=== PATIENT | male | born 1945 | race Caucasian/White ===

== ENCOUNTER 2020-02-27 14:24 | Emergency (ER) | payer OTHER, SELFPAY ==
[2020-02-27] VITALS (13 sets, daily range): BP systolic 111–140; BP diastolic 61–77; PULSE 63–99; RESP 12–99; TEMP 36.6; O2SAT 97–100
--- NOTE | 2020-02-27 14:26 | DI.CT.S_ITS ---
PROCEDURE: CT HEAD/BRAIN WO CON INDICATIONS: weakness TECHNIQUE: Noncontrast 4.5 mm thick angled axial sections acquired from the foramen magnum to the vertex, with coronal and sagittal reformats. For radiation dose reduction, the following was used: automated exposure control, adjustment of mA and/or kV according to patient size. COMPARISON: [facility], , MRI HEAD W/WO CONTRAST, 01/29/2004, 9:40. FINDINGS: Image quality: Excellent. CSF spaces: Basal cisterns are patent. No extra-axial fluid collections. Ventricles are normal in size and shape. Brain: No midline shift. No intracranial masses or hemorrhage. Garcia-white matter interface is normal. Possible partially calcified meningioma seen at the right vertex image 20/ measuring 1.5 cm. this is probably unchanged as MRI dated 01/29/04. Skull and face: Calvarium and visualized facial bones are intact, without suspicious lesions. Sinuses: Visualized sinuses and mastoids are clear. IMPRESSION: No acute intracranial process. Chronic right frontal calcified meningioma Findings were personally telephoned and discussed with Dr. Leach in the emergency department at 1441 hours 02/27/20. Dictated by: Charly Edmondson M.D. on 02/27/2020 at 14:37 Approved by: Charly Edmondson M.D. on 02/27/2020 at 14:42
--- NOTE | 2020-02-27 14:44 | ED_ITS ---
HPI - Neuro Symptoms/Deficit General Chief Complaint: Neuro Symptoms/Deficit Stated Complaint: stroke Time Seen by Provider: 02/27/20 14:31 Source: patient and family Mode of arrival: Wheelchair History of Present Illness HPI Narrative: CC: dizziness with chest discomfort HPI: The patient is a 75-year-old who presented to the emergency department with the sudden onset of dizziness that the nurses ordered it is code stroke on the patient. The patient states that he has a history of atrial fib and is status post ablations years ago. Today right after eating lunch the patient developed a vague chest discomfort arm that was a little bit tightness squeezing and pressure associated with dizziness and lightheadedness. He states that his balance was off but he was not having any spinning discomfort. His chest discomfort was just very uncomfortable and tight and squeezing. His arms felt very weak and tired with no energy. He felt a little bit diaphoretic with the onset of the symptoms and had mild shortness of breath. He did not pass out or fall. He denied any significant back pain or arm headache associated with this. He could not give any pain score but then stated -04/19 He denies a history of diabetes mellitus hypertension previous stroke or myocardial infarction. Patient states that he used to smoke years ago arm drinks alcohol rarely and does not use any drugs or marijuana. On Anticoagulants: No Related Data Home Medications Medication Instructions Recorded Confirmed metoprolol tartrate 37.5 mg PO #0 02/09/13 warfarin [Coumadin] #0 02/09/13 Allergies Allergy/AdvReac Type Severity Reaction Status Date / Time No Known Drug Allergies Allergy Verified 02/27/20 14:31 Review of Systems Review of Systems Narrative: His review of systems were all negative except for those mentioned in the history of present illness. Exam Narrative Exam Narrative: PHYSICAL EXAM: CONSTITUTIONAL: Awake, Alert, Oriented, Coherent, Cooperative very anxious and signing. HEAD: AT/NC EENT: PERRL, FROM of eyes, no discharge, no nystagmus NOSE:No epistaxis or nasal drainage MOUTH:Oral mucosa is moist and pink, posterior pharynx is without erythema or exudate. NECK: Supple, no obvious JVD, Trachea is midline without stridor, no palpable LN. SPINE: Palpationof the cervical, Thoracic, Lumbar or Sacral spine reveals no gross deformity or tenderness. No CVA tenderness. THORAX: No deformity, retractions, chest wall tenderness. LUNGS: Clear, symmetrical breath sounds without respiratory distress. HEART: Normal heart tones, regular rhythm and rate without murmur. ABDOMEN: Soft, non-tender,without guarding, rebound, rigidity or palpable mass. EXTREMITIES: No edema, deformity, tenderness or cyanosis. SKIN: No rash, bruising, petechiae or purpura. NEURO: Awake, alert, oriented, conversive, cranial nerves II-XII are symmetrical , moves all 4 extremities and is ambulatory. MENTAL HEALTH: The patient appears to be very anxious. Initial Vital Signs Initial Vital Signs: Vital Signs Pulse Rate 99 H 02/27/20 14:40 Respiratory Rate 22 02/27/20 14:40 Blood Pressure 140/66 02/27/20 14:40 Pulse Oximetry 99 02/27/20 14:40 Scores NIH Stroke Scale Level of Conciousness: Alert, keenly responsive Ask month/age: Answers both questions correctly. Open/close eyes, close hand: Performs both tasks correctly Best gaze horizontal: Normal Visual luna: No visual loss Facial palsy: Normal symetrical movement Left arm drift: No drift for full 10 sec Right arm drift: No drift for full 10 sec Left leg drift: No drift for full 10 sec Right leg drift: No drift for full 10 sec Limb ataxia: Absent Sensory on face/arms/legs: Normal, no sensory loss Best language: No aphasia, normal Dysarthria: Normal Extinction or inattention: No abnormality Total NIH Stroke scale score: 0 Course Course Course Narrative: 1445: CT is negative for any acute pathology 1520: The patient is acutely anxious. 1653: 6 beat run of v-tach 1659: The patient's second EKG shows a sinus rhythm with occasional premature atrial contractures. Ventricular rate is 72. Intervals are normal. QTC is 413 milliseconds. [place] is normal. The patient has slight ST segment depressions in lead III. T-waves are flat in V1 T-waves are inverted in III. There are no other acute diagnostic ST segment changes or ST elevations. There are no signs of infarct or injury at this time. 1721: The patient complains of being excessively weak and having this vague chest discomfort. He just feels weak all over his whole entire body. Sometimes he feels a little bit weaker in his left leg. He denies any headache. He has had no shortness of breath. On re-evaluation there is no drift of his arms. Hi s arms are symmetrical strength. Exhibits symmetrical dorsiflexion and plantar flexion. However if I hold the patient's left leg up in the air he drops it down almost immediately to the bed. Sensation is symmetrical otherwise so is the strength to dorsal and plantar flexion rinse previously noted. Lungs are clear and symmetrical. A 2nd repeat EKG has been obtained on the patient and a repeat troponin has been ordered on the patient. The plan is to admit the patient on telemetry. The patient's neurological exam and NIH stroke scale is otherwise within normal limits except for weakness in his left leg. 177: The patient's repeat troponin is less than 0.012. A call will be placed into the hospitalist to admit the patient for further evaluation and admission for a possible cardiac stress test. 1815 Dr. Santos states that he is not process control tech, Dr. Flores is process control tech. Initially discussed with Dr. Jessica who states that they do not do stress tests were on the weekend here and recommended that I call and discuss that with the jewel stringer on-call. 1854: Patient informed that we are waiting for Cardiology to call back. The patient states that in [place] he had a stress test in [place] last June and it was negative and they concluded that he had arm GERD with pasquale gestion. 1956: I discussed the patient with Dr. sánchez Haynes the wire stockkeeper for [place] who stated that we can proceed with transferring the patient to [facility]. 2123: Discussed the patient with the special events coordinator and the hospitalist process control tech who accepted the patient being transferred to [facility]. Orders Ordered: ED Orders 02/27/20 14:26 CT head/brain wo con Stat 02/27/20 14:32 Complete Blood Count AUTO DIFF Stat Comprehensive Metabolic Panel Stat Magnesium Stat NT-proBNP (BNP-Adult 18+) Stat Partial Thromboplastin Time Stat Prothrombin Time INR Stat Troponin & CK Cardiac Panel Stat 02/27/20 14:49 XR chest 1V Stat 02/27/20 17:05 cardiac panel [Troponin & CK Cardiac Panel] Stat Sucralfate (Carafate) 1 gm PO ACHS MICHELLE Last Admin: 02/27/20 15:36 Dose: 1 gm Documented by: ANA Discontinued Medications Sodium Chloride (Normal Saline 0.9%) 1,000 mls @ 1,000 mls/hr IV BOLUS ONE Stop: 02/27/20 15:46 Last Infusion: 02/27/20 15:48 Dose: 0 mls/hr Documented by: Admin: 02/27/20 14:58 Dose: 1,000 mls/hr Documented by: NYA Lorazepam (Ativan) 0.5 mg IV NOW ONE Stop: 02/27/20 14:57 Last Admin: 02/27/20 15:00 Dose: 0.5 mg Documented by: NYA Morphine Sulfate (Morphine) 4 mg IV NOW ONE Stop: 02/27/20 14:51 Last Admin: 02/27/20 14:57 Dose: 4 mg Documented by: NYA Nitroglycerin (Nitrostat) 0.4 mg SL NOW ONE Stop: 02/27/20 15:24 Last Admin: 02/27/20 15:37 Dose: 0.4 mg Documented by: ANA Pantoprazole Sodium (Protonix) 40 mg IV NOW ONE Stop: 02/27/20 15:24 Last Admin: 02/27/20 15:36 Dose: 40 mg Documented by: ANA Vital Signs Vital signs: Vital Signs - 8 hr 02/27/20 14:40 02/27/20 15:12 02/27/20 15:37 Temperature 97.9 F Pulse Rate 99 H 91 H 82 Respiratory Rate 22 18 Blood Pressure 130/67 Blood Pressure [Right Arm] 140/66 139/68 Pulse Oximetry 99 98 02/27/20 16:04 02/27/20 17:02 02/27/20 17:30 Temperature Pulse Rate 81 78 63 Respiratory Rate 17 99 H Blood Pressure Blood Pressure [Right Arm] 120/62 119/64 113/61 Pulse Oximetry 97 99 99 02/27/20 18:00 02/27/20 19:00 02/27/20 19:30 Temperature Pulse Rate 70 70 69 Respiratory Rate 23 16 21 Blood Pressure Blood Pressure [Right Arm] 125/68 122/68 111/69 Pulse Oximetry 97 98 100 02/27/20 20:11 02/27/20 21:00 Temperature Pulse Rate 70 72 Respiratory Rate 22 15 Blood Pressure Blood Pressure [Right Arm] 131/65 123/77 Pulse Oximetry 98 99 MDM - Neuro Symptoms/Deficit Medical Records Attestation: I reviewed the patient's medical records. Lab Data Attestation: I reviewed the patient's lab results. Result diagrams: 02/27/20 14:32 02/27/20 14:32 Labs: Lab Results 02/27/20 02/27/20 02/27/20 Range/Units 14:32 14:32 14:32 WBC 10.3 (4.5-11.0) X10^3/uL RBC 5.23 (4.5-5.9) X10^6/uL Hgb 16.2 (13.5-17.5) g/dL Hct 46.7 (41-53) % MCV 89.4 (80-100) fL MCH 31.1 (26-34) PG MCHC 34.7 (30-36) % RDW 13.1 (11.6-14.8) % Plt Count 243 (150-400) X10^3/uL Neut % (Auto) 64.4 (50-75) % Lymph % (Auto) 26.7 (25-40) % Schley % (Auto) 7.6 (3-14) % Eos % (Auto) 0.7 L (2-4) % Baso % (Auto) 0.6 (0-2) % Neut # (Auto) 6700 (4138-1012) /uL Lymph # (Auto) 2800 (4431-3771) /uL Schley # (Auto) 800 (0-900) /uL Eos # (Auto) 100 (0-450) /uL Baso # (Auto) 100 (0-100) /uL PT 11.2 (10.1-12.7) SECONDS INR 1.0 (0.9-1.3) APTT 30 (26.4-36.2) SECONDS Sodium 139 (137-145) mmol/L Potassium 3.8 (3.4-5.1) mmol/L Chloride 102 (98-107) mmol/L Carbon Dioxide 27 (22-32) mmol/L BUN 13 (9-20) mg/dL Creatinine 1.04 (0.66-1.25) mg/dL Estimated GFR > 60.0 (>60) mL/min BUN/Creatinine Ratio 12.5 (6-22) Glucose 123 H (80-110) mg/dL Calcium 9.9 (8.4-10.2) mg/dL Magnesium (1.6-2.3) mg/dL Total Bilirubin 0.7 (0.2-1.3) mg/dL AST 33 (17-59) IU/L ALT 22 (<50) IU/L Alkaline Phosphatase 82 (38-126) U/L Total Creatine Kinase 232 H (55-170) U/L CK-MB (CK-2) 2.11 (<2.37) ng/mL CK-MB (CK-2) Rel Index 0.9 L (1.5-5.0) % Troponin I < 0.012 (0.01-0.034) ng/mL NT-Pro-B Natriuret Pep 32 (<450) pg/mL Total Protein 7.5 (6.3-8.2) g/dL Albumin 4.5 (3.5-5.0) g/dL Globulin 3.0 (1.7-4.1) g/dL Albumin/Globulin Ratio 1.5 (1.0-2.8) 02/27/20 02/27/20 Range/Units 14:32 17:05 WBC (4.5-11.0) X10^3/uL RBC (4.5-5.9) X10^6/uL Hgb (13.5-17.5) g/dL Hct (41-53) % MCV (80-100) fL MCH (26-34) PG MCHC (30-36) % RDW (11.6-14.8) % Plt Count (150-400) X10^3/uL Neut % (Auto) (50-75) % Lymph % (Auto) (25-40) % Schley % (Auto) (3-14) % Eos % (Auto) (2-4) % Baso % (Auto) (0-2) % Neut # (Auto) (6642-2158) /uL Lymph # (Auto) (2380-5973) /uL Schley # (Auto) (0-900) /uL Eos # (Auto) (0-450) /uL Baso # (Auto) (0-100) /uL PT (10.1-12.7) SECONDS INR (0.9-1.3) APTT (26.4-36.2) SECONDS Sodium (137-145) mmol/L Potassium (3.4-5.1) mmol/L Chloride (98-107) mmol/L Carbon Dioxide (22-32) mmol/L BUN (9-20) mg/dL Creatinine (0.66-1.25) mg/dL Estimated GFR (>60) mL/min BUN/Creatinine Ratio (6-22) Glucose (80-110) mg/dL Calcium (8.4-10.2) mg/dL Magnesium 2.2 (1.6-2.3) mg/dL Total Bilirubin (0.2-1.3) mg/dL AST (17-59) IU/L ALT (<50) IU/L Alkaline Phosphatase (38-126) U/L Total Creatine Kinase 182 H (55-170) U/L CK-MB (CK-2) 1.62 (<2.37) ng/mL CK-MB (CK-2) Rel Index 0.9 L (1.5-5.0) % Troponin I < 0.012 (0.01-0.034) ng/mL NT-Pro-B Natriuret Pep (<450) pg/mL Total Protein (6.3-8.2) g/dL Albumin (3.5-5.0) g/dL Globulin (1.7-4.1) g/dL Albumin/Globulin Ratio (1.0-2.8) Point of Care Testing Glucose POC 136 ECG Data Attestation: I personally reviewed and interpreted this ECG as follows: Interpretation: The patient's EKG obtained in 2:33 p.m. reveals a sinus rhythm with premature atrial contractures. Ventricular rate is 100. AK interval is normal QRS duration is normal QTC is borderline prolonged at 454 milliseconds axis is normal. The patient has nonspecific ST segment changes in leads III AVF with inverted T-wave in 3 and biphasic in AVF. There are no other acute di agnostic ST segment changes. Discharge Plan Departure Patient Disposition: [facility] Clinical Impression: Weakness, Chest discomfort, Dizziness, H/O atrial fibrillation without current medication, Ventricular tachycardia Fatigue Qualifiers: Fatigue type: other Qualified Code(s): R53.83 - Other fatigue Gastroesophageal reflux disease Qualifiers: Esophagitis presence: without esophagitis Qualified Code(s): K21.9 - Gastro-esophageal reflux disease without esophagitis Prescriptions: No Action warfarin [Coumadin] 7.5 MG tablet Qty: 0 RF: 0 metoprolol tartrate 25 MG tablet 37.5 mg PO Qty: 0 RF: 0 Referrals: Isaac Cespedes MD [Primary Care Provider] -
--- NOTE | 2020-02-27 14:49 | DI.RAD.S_ITS ---
PROCEDURE: XR CHEST 1V INDICATIONS: chest discomfort TECHNIQUE: One view of the chest was acquired. COMPARISON: [facility], , CHEST 1 VIEW, 07/12/2013, 9:19. FINDINGS: Surgical changes and devices: None. Lungs and pleura: Lungs are clear. No pleural effusions or pneumothorax. Mediastinum: Mediastinal contours appear normal. Heart size is normal. Bones and chest wall: No suspicious bony lesions. Overlying soft tissues appear unremarkable. IMPRESSION: No acute cardiopulmonary findings. Dictated by: Peyton Mills M.D. on 02/27/2020 at 15:22 Approved by: Peyton Mills M.D. on 02/27/2020 at 15:22
[2020-02-27 14:55] LABS: Add Manual Diff / Slide Review NO; Basophils Absolute Auto 100 /uL (0-100); Basophils Percent Auto 0.6 % (0-2); Eosinophils Absolute Auto 100 /uL (0-450); Eosinophils Percent Auto 0.7 % (2-4); Hematocrit 46.7 % (41-53); Hemoglobin 16.2 g/dL (13.5-17.5); Lymphocytes Absolute Auto 2800 /uL (1100-4500); Lymphocytes Percent Auto 26.7 % (25-40); Mean Corpuscular HGB Conc 34.7 % (30-36); Mean Corpuscular Hemoglobin 31.1 PG (26-34); Mean Corpuscular Volume 89.4 fL (80-100); Monocytes Absolute Auto 800 /uL (0-900); Monocytes Percent Auto 7.6 % (3-14); Neutrophils Absolute Auto 6700 /uL (1500-7000); Neutrophils Percent Auto 64.4 % (50-75); Platelet Count 243 X10^3/uL (150-400); Red Blood Cell Count 5.23 X10^6/uL (4.5-5.9); Red Cell Distribution Width 13.1 % (11.6-14.8); White Blood Cell Count 10.3 X10^3/uL (4.5-11.0)
[2020-02-27 14:56] LABS: Prothrombin Time 11.2 SECONDS (10.1-12.7)
[2020-02-27] MEDS: MORPHINE 4 MG/ML INJ IV (14:57)
[2020-02-27] MEDS: ASPIRIN 81 MG CHEW TAB 324 MG (14:57)
[2020-02-27] MEDS: SODIUM CHLORIDE 0.9% 1,000 ML 1000 ML IV (14:58)
[2020-02-27 14:59] LABS: PTT Partial Thromboplastin Tim 30 SECONDS (26.4-36.2)
[2020-02-27] MEDS: LORazepam 2 MG/ML INJ 0.5 MG IV (15:00)
[2020-02-27 15:01] LABS: Alanine Aminotransferase 22 IU/L (<50); Albumin 4.5 g/dL (3.5-5.0); Albumin Globulin Ratio 1.5 (1.0-2.8); Alkaline Phosphatase 82 U/L (38-126); Aspartate Aminotransferase 33 IU/L (17-59); BUN Creatinine Ratio 12.5 (6-22); Bilirubin Total 0.7 mg/dL (0.2-1.3); Blood Urea Nitrogen 13 mg/dL (9-20); Calcium 9.9 mg/dL (8.4-10.2); Carbon Dioxide 27 mmol/L (22-32); Chloride 102 mmol/L (98-107); Creatine Kinase 232 U/L (55-170); Estimated Glomerular Filt Rate > 60.0 mL/min (>60); Glucose 123 mg/dL (80-110); HEMOLYSIS 16 (0-50); Potassium 3.8 mmol/L (3.4-5.1); Sodium 139 mmol/L (137-145); Total Protein 7.5 g/dL (6.3-8.2)
[2020-02-27 15:02] LABS: Magnesium 2.2 mg/dL (1.6-2.3)
[2020-02-27 15:13] LABS: NT-proBNP (BNP-Adult 18+) 32 pg/mL (<450); Troponin I < 0.012 ng/mL (0.01-0.034)
[2020-02-27 15:16] LABS: CKMB % Relative Index 0.9 % (1.5-5.0); Creatine Kinase MB 2.11 ng/mL (<2.37)
[2020-02-27] MEDS: SUCRALFATE 1 GM/10 ML ORAL SUSP PO (15:36)
[2020-02-27] MEDS: PANTOPRAZOLE 40 MG VIAL IV (15:36)
[2020-02-27] MEDS: NITROGLYCERIN 0.4 MG SL TAB SL (15:37)
--- NOTE | 2020-02-27 15:50 | PC.NURSE ---
Pt pain remained 5/10 post nitro. Reported this to Dr Leach, no new orders.
--- NOTE | 2020-02-27 17:01 | PC.NURSE ---
Pt had a run of 6 PVC, notified Dr Leach. Printout on chart
[2020-02-27 17:20] LABS: Creatine Kinase 182 U/L (55-170)
[2020-02-27 17:33] LABS: Troponin I < 0.012 ng/mL (0.01-0.034)
[2020-02-27 17:36] LABS: CKMB % Relative Index 0.9 % (1.5-5.0); Creatine Kinase MB 1.62 ng/mL (<2.37)
--- NOTE | 2020-02-27 23:06 | PC.NURSE ---
pt complaining of 6 or 7/10 squeezing in the left chest area. RN Harmeet aware and EKG is being obtained
--- NOTE | 2020-02-27 23:34 | PC.NURSE ---
Pt stated chest pressure and pain, EKG ordered and given to Dr Barron, repeat troponin drawn by lab.
[2020-02-28] LABS: Troponin I < 0.012 ng/mL (0.01-0.034)
== END 2020-02-28 00:08 | disposition short-term general hospital (02) ==
PROVIDERS: Emergency Medicine; Emergency Provider Emergency Medicine; Family Provider Family Medicine; PCP Family Medicine
DX: I47.2 Ventricular tachycardia (principal); R07.89 Other chest pain; R53.1 Weakness; R42 Dizziness and giddiness; I48.91 Unspecified atrial fibrillation; R53.83 Other fatigue; K21.9 Gastro-esophageal reflux disease without esophagitis
CPT/HCPCS: 36415; 70450; 71045; 80053; 82550; 82553; 82962; 83735; 83880; 84484; 85025; 85610; 85730; 93005; 96361; 96374; 96375; 99285; C9113; J2060; J2270

== ENCOUNTER → 2021-07-19 08:07 | Outpatient (CLI) | payer OTHER, SELFPAY ==
[2021-07-19 09:53] LABS: Prostate Specific Antigen 0.814 ng/mL (0.10-4.00)
== END ==
PROVIDERS: Referring Provider Specialist; Visit Provider Specialist
DX: N40.1 Benign prostatic hyperplasia with lower urinary tract symptoms (principal); N13.8 Other obstructive and reflux uropathy
CPT/HCPCS: 36415; 84153

== ENCOUNTER → 2022-08-07 09:12 | Outpatient (CLI) | payer OTHER, SELFPAY ==
--- NOTE | 2022-08-07 09:16 | DI.RAD.S_ITS ---
PROCEDURE: XR SHOULDER RT MIN 2V INDICATIONS: RIGHT SHOULDER PAIN TECHNIQUE: 3 views of the shoulder were acquired. COMPARISON: [facility], CR, XR CHEST 1 VIEW, 02/09/2021, 10:57. FINDINGS: Bones: No fractures or dislocations. Mild to moderate degenerative change at the GH and AC joints. No suspicious bony lesions. Visualized ribs appear intact. Soft tissues: No suspicious soft tissue calcifications. IMPRESSION: [id number] right shoulder DJD. Dictated by: Trevon Lawson M.D. on 08/07/2022 at 11:06 Approved by: Trevon Lawson M.D. on 08/07/2022 at 11:08
== END ==
PROVIDERS: PCP Internal Medicine; Referring Provider Internal Medicine; Visit Provider Internal Medicine
DX: M25.511 Pain in right shoulder (principal); M19.011 Primary osteoarthritis, right shoulder
CPT/HCPCS: 73030

== ENCOUNTER 2022-10-12 07:25 | Day surgery (SDC) | payer OTHER, SELFPAY ==
--- NOTE | 2022-10-12 | PATH_ITS ---
[facility] Accession Number: [id number] No. of containers..04 Tissue . 01 Material submitted: . PART A: duodenum bulb - DUODENAL BULB POLYP PART B: stomach - ANTRUM PART C: gastrointestinal site - GASTRIC BODY POLYP PART D: colon - ASCENDING COLON POLYPS . 01 Diagnosis: A. Duodenum, Bulb Polyp, Biopsy: Duodenal mucosa with prominent Gaurav's glands and gastric surface foveolar metaplasia consistent with peptic duodenitis. Negative for intraepithelial lymphocytosis. Negative for dysplasia and malignancy. . B. Stomach, Antrum, Biopsy: Antral mucosa with mild chronic gastritis. Negative for Helicobacter by immunohistochemistry. Negative for intestinal metaplasia. Negative for dysplasia and malignancy. . C. Stomach, Body Polyp, Biopsy: Body type mucosa with a few dilated glands, consistent with fundic gland polyp. No evidence of Helicobacter on H/E stain. Negative for intestinal metaplasia. Negative for dysplasia and malignancy. . D. Ascending Colon, Polyps, Biopsies: Colonic mucosa with a few small benign lymphoid aggregates and no other diagnostic abnormality. Additional levels were examined. [facility] 10/20/2022 1405 Local . 01 Electronically signed: . Kinjal Orosco MD, Pathologist NPI- [id number] . 01 Gross description: . Part A: DUODENAL BULB POLYP: Received in formalin are 2 fragment(s) of martinez, soft tissue measuring 0.3 x 0.2 x 0.1 cm to 0.3 x 0.1 x 0.1 cm submitted entirely in 1 cassette(s) Part B: ANTRUM: Received in formalin is 1 fragment(s) of martinez, soft tissue measuring 0.7 x 0.2 x 0.1 cm submitted entirely in 1 cassette(s) Part C: GASTRIC BODY POLYP: Received in formalin are 2 fragment(s) of martinez, soft tissue measuring 0.3 x 0.3 x 0.1 cm to 0.2 x 0.1 x 0.1 cm submitted entirely in 1 cassette(s) Part D: ASCENDING COLON POLYPS: Received in formalin are 2 fragment(s) of martinez, soft tissue measuring 0.4 x 0.2 x 0.1 cm to 0.3 x 0.3 x 0.1 cm submitted entirely in 1 cassette(s) /CPE 10/13/2022 0858 Local . 01 Microscopic: . B. An immunohistochemical stain was performed to evaluate for Helicobacter organisms and is negative. The control stain showed appropriate reactivity. . * This test was developed and its performance characteristics determined by [employer]. It has not been cleared or approved by the U.S. Food and Drug Administration. The FDA has determined that such clearance or approval is not necessary. This test is used for clinical purposes. It should not be regarded as investigational or for research. . 01 Pathologist provided ICD-10: K92.1, K31.7 . 01 CPT . 653418, 224740, 586617, 724484, I51292 Specimen Comment: A courtesy copy of this report has been sent to [phone] Performed at: 01 [facility] [address] [place] [address] [address] [facility] [place], [place], [place] [id number] MD Boone Kim MD Phone: [phone]
[2022-10-12 07:51] VITALS: BP 125/68; PULSE 85; RESP 16; TEMP 36.3; O2SAT 97; BMI 26.5
[2022-10-12] MEDS: LACTATED RINGERS 1,000 ML 84 ML IV (08:17)
--- NOTE | 2022-10-12 08:39 | PM.PREOP ---
Pre-operative Note COVID-19 COVID-19 status: Not tested Interval Note History & Physical reviewed/Exam performed by Physician: Yes Changes to H&P: No ASA Class (for procedural sedation): II
[2022-10-12 09:16] VITALS: BP 90/57; PULSE 66; RESP 12; TEMP 35.7; O2SAT 96
--- NOTE | 2022-10-12 09:17 | P.OP.EGD&C_ITS ---
Operative Date/Time/Diagnoses Date of procedure: 10/12/22 Time of procedure: 09:17 Pre-op diagnosis: Melena Post-op diagnosis: same Procedure & Clinicians Study performed: EGD and colonoscopy Same procedure as scheduled: Yes Surgeon: Los Hooker Procedure Notes Procedure in detail: Surgeon: Los Hooker MD Anesthesia: Dr. Go Procedure in detail: A timeout was performed. A bite blocked was placed and monitors were attached to the patient. The patient was positioned in a left la teral decubitus position. Sedation was administered by Dr. Go. Once the patient was sedated the endoscope was inserted through the bite block and passed through the esophagus and stomach and into the duodenum. The duodenum was normal. There was a small polyp in the duodenal bulb which was removed with the cold forceps. The scope was withdrawn into the stomach. There was mild antritis and random biopsies were taken from the antrum. There was gastric body polyp which was biopsied with the forceps. The endoscope was retroflexed and no hiatal hernia was seen. The endoscope was straightned and withdrawn into the esophagus. No abnormalities were noted in the esophagus. Findings: Polyp in the duodenal bulb, polyp in the gastric body and mild antritis Next we repositioned the patient for a colonoscopy. A digital rectal exam was performed and was normal. The colonoscope was inserted and advanced to the cecum. The appendiceal orifice was identified and photographed. The scope was slowly withdrawn over greater than 6 minutes. There were 2 small polyps in the ascending colon removed with Jumbo forceps. There was mild sigmoid diverticulosis. The scope was retroflexed in the rectum and no further abnormalities were seen. The scope was straightened and withdrawn. Findings: 2 small polyps in the ascending colon and mild diverticulosis in the sigmoid colon EBL: 5 mL Scope withdrawal time: 9 minutes Sedation minutes: 23 minutes Post-procedure Disposition: PACU
[2022-10-12 09:21] VITALS: BP 97/61; PULSE 69; RESP 14; O2SAT 96
[2022-10-12 09:26] VITALS: BP 97/64; PULSE 70; RESP 16; O2SAT 100
[2022-10-12 09:34] VITALS: BP 105/69; PULSE 68; RESP 15; O2SAT 98
--- NOTE | 2022-10-12 09:35 | SUR.PHASEII ---
0930: Pt A&Ox4, reports pain as baseline, VSS, abdomen soft, and ready to transfer to phase 2. Report given to DANAY Madrid with time allowed for questions, will transfer care now.
== END 2022-10-12 09:43 | disposition home or self-care (01) ==
PROVIDERS: PCP Internal Medicine; Referring Provider Surgery; Visit Provider Surgery
PROC: 0DJ08ZZ Inspection of Upper Intestinal Tract, Via Natural or Artificial Opening Endoscopic (ICD-10-PCS; CPT 43235; principal; 2022-10-12 08:45)
PROC: 0DJD8ZZ Inspection of Lower Intestinal Tract, Via Natural or Artificial Opening Endoscopic (ICD-10-PCS; CPT 45378; 2022-10-12 08:45)
DX: K92.1 Melena (principal); K57.30 Diverticulosis of large intestine without perforation or abscess without bleeding; K31.7 Polyp of stomach and duodenum; K29.50 Unspecified chronic gastritis without bleeding
CPT/HCPCS: 43239; 45380; J2704; J3010

== ENCOUNTER → 2022-11-07 14:50 | Outpatient (CLI) | payer OTHER, SELFPAY ==
--- NOTE | 2022-11-07 14:54 | DI.RAD.S_ITS ---
PROCEDURE: XR HIP W PEL IF DONE RT 2V INDICATIONS: RIGHT GROIN PAIN TECHNIQUE: AP pelvis with lateral view(s) of the right hip(s). COMPARISON: [facility], , HIP 2V RIGHT, 11/01/2008, 15:41. FINDINGS: Bones: No fractures or dislocations. Pelvic ring appears intact. No suspicious bony lesions. Mild right hip osseous hypertrophy compatible with osteoarthritis. Soft tissues: The visualized bowel gas pattern is normal. No suspicious soft tissue calcifications. IMPRESSION: Mild right hip osteoarthritis. Dictated by: Adriana Dias MD, PhD on 11/07/2022 at 15:30 Approved by: Adriana Dias MD, PhD on 11/07/2022 at 15:31
== END ==
PROVIDERS: PCP Internal Medicine; Referring Provider Internal Medicine; Visit Provider Internal Medicine
DX: R10.31 Right lower quadrant pain (principal); M16.11 Unilateral primary osteoarthritis, right hip
CPT/HCPCS: 73502

== ENCOUNTER → 2022-11-10 09:47 | Outpatient (CLI) | payer OTHER, SELFPAY ==
--- NOTE | 2022-11-10 | DI.US.S_ITS ---
PROCEDURE: US ABDOMEN LIMITED INDICATIONS: RIGHT INGUINAL MASS TECHNIQUE: Real-time focused scanning was performed of the abdomen, with image documentation. Color Doppler was also utilized. COMPARISON: None. FINDINGS: Scan is performed at the area of clinical concern involving the anterior right thigh. At this site, there is an ovoid lesion seen without abnormal vascularity, which demonstrates a similar echotexture to the surrounding normal subcutaneous fat. This measures 4.7 x 1 x 2.5 cm. IMPRESSION: 4.7 cm lipoma seen at the site of clinical concern. Dictated by: Sree Francisco M.D. on 11/10/2022 at 9:38 Approved by: Sree Francisco M.D. on 11/10/2022 at 9:40
== END ==
PROVIDERS: PCP Internal Medicine; Referring Provider Internal Medicine; Visit Provider Internal Medicine
DX: D17.1 Benign lipomatous neoplasm of skin and subcutaneous tissue of trunk (principal)
CPT/HCPCS: 76705

== ENCOUNTER → 2023-02-08 06:33 | Outpatient (CLI) | payer OTHER, SELFPAY ==
--- NOTE | 2023-02-08 06:34 | DI.ECHO.S_ITS ---
[facility] +---------+ : : [address] : [address] [place] : : : : [id number] : : : : Phone: [phone]+ Echocardiogram Report + + :Name: MATILDA LARA Study Date: 02/08/2023 Height: 70 in : :[facility] ReadingLocation: Weight: 185 lb : : Gender: Male BSA: 2.0 m2 : :: 1945 Age: 78 yrs BP: 116/69 mmHg: :Reason For Study: Atrial Fibrillation : :Ordering Physician: Kristin, : :Ping Performed By: Jes Holm : :Referring: KATHARINA BYRD : + + Interpretation Summary 1) Normal left ventricular thickness, size, wall motion, and systolic function (EF 60-65%). 2) Normal right ventricular size and function. 3) No significant valvular abnormalities. 4) No prior Echo available for comparison. Procedure: A two-dimensional transthoracic echocardiogram with color flow and Doppler was performed. The study quality was technically adequate. There is no prior echocardiogram noted for this patient. The patient was in normal sinus rhythm during the exam. Left Ventricle: The left ventricle is normal in size and wall thickness. The ejection fraction is estimated to be 60-65%. Left ventricular systolic function appears normal without focal wall motion abnormalities. Diastolic parameters suggest a relaxation abnormality of the left ventricle, consistent with probable normal filling pressures. Right Ventricle: The right ventricle is normal size. The right ventricular systolic function is normal. Atria: The left atrial size is normal. Right atrial size is normal. There is no Doppler evidence for an interatrial shunt. Mitral Valve: The mitral valve leaflets are slightly calcified. There is no mitral valve stenosis. There is trace mitral regurgitation. Aortic Valve: The aortic valve is trileaflet. The aortic valve opens well. There is mild aortic valve sclerosis. There is no aortic valve stenosis. No aortic regurgitation is present. Tricuspid Valve: The tricuspid valve is normal. There is no tricuspid stenosis. There is mild tricuspid regurgitation. The right ventricular systolic pressure is estimated to be at least 24.5 mmHg based on an estimated right atrial pressure of 3 mm Hg. Pulmonic Valve: The pulmonic valve leaflets are thin and pliable; valve motion is normal. There is no pulmonic valvular stenosis. There is trace pulmonic regurgitation. Great Vessels: The aortic root is normal size. The ascending aorta is normal in size. The pulmonary artery is normal size. The IVC is of normal diameter and collapses greater than 50% with a sniff. This suggests a low right atrial pressure of 3 mm Hg. Pericardium/ Pleura There is no pericardial effusion. There is no pleural effusion. MMode/2D Measurements & Calculations LVIDd: 4.5 cm LVOT diam: 1.9 cm LVIDs: 3.0 cm Ao root diam: 3.2 cm FS: 33.3 % asc Aorta Diam: 3.6 cm EPSS: 0.40 cm IVSd: 1.1 cm LVPWd: 1.0 cm LV leung. diameter/BSA (cm/m^2): 2.2 LV sys. diameter/BSA (cm/m^2): 1.5 LA A2 area: 18.2 cm2 RA long axis: 5.4 cm LA A4 area: 16.1 cm2 RA area: 14.4 cm2 LA length (vol): 5.9 cm RA vol: 32.6 ml LA vol: 42.3 ml RA : 16.1 ml/m2 LA vol index: 20.9 ml/m2 RVD1 (basal): 3.5 cm LVLs ap4: 6.2 cm LVLd ap2: 6.9 cm TAPSE_phl: 2.5 cm LVLs ap2: 5.7 cm Doppler Measurements & Calculations Ao V2 max: 139.0 cm/sec LVOT Max Tevin: 119.0 cm/sec Ao V2 mean: 101.0 cm/sec LV V1 max P.7 mmHg Ao max P.0 mmHg LV V1 VTI: 24.3 cm Ao mean P.0 mmHg MARIBELL(I,D): 1.9 cm2 Ao V2 VTI: 36.8 cm MARIBELL(V,D): 2.4 cm2 sev ratio: 0.66 MARIBELL indexed to BSA (cm^2/m^2): 0.93 MV E max tevin: 73.0 cm/sec TR max tevin: 232.0 cm/sec MV A max tevin: 78.2 cm/sec TR max P.5 mmHg MV E/A: 0.93 PA V2 max: 97.5 cm/sec Med Peak E' Tevin: 6.2 cm/sec PA V2 mean: 68.5 cm/sec E/E' med: 11.8 PA mean P.0 mmHg Lat Peak E' Tevin: 7.4 cm/sec PA pr(Accel): 31.3 mmHg E/E' lat: 9.9 E/e' average: 10.9 MV dec time: 0.22 sec SV(LVOT): 68.9 ml AV VR_phl: 0.86 MARIBELL(VTI)/BSA_phl: 0.93 Reading Physician:10:44 AM
== END ==
PROVIDERS: PCP Internal Medicine; Referring Provider Internal Medicine; Visit Provider Internal Medicine
DX: I48.91 Unspecified atrial fibrillation (principal)
CPT/HCPCS: 93306

== ENCOUNTER → 2023-03-14 08:23 | Outpatient (CLI) | payer OTHER, SELFPAY ==
[2023-03-14 10:01] LABS: BUN Creatinine Ratio 14.6 (6-22); Blood Urea Nitrogen 12 mg/dL (9-20); Calcium 9.1 mg/dL (8.4-10.2); Carbon Dioxide 30 mmol/L (22-32); Chloride 103 mmol/L (98-107); Cholesterol 148 mg/dL (140-199); Estimated Glomerular Filt Rate > 60 mL/min (>60); Glucose 106 mg/dL (80-110); HDL Cholesterol 42 mg/dL (40-60); HEMOLYSIS < 15 (0-50); LDL Cholesterol Calculated 83 mg/dL (<100); Potassium 4.3 mmol/L (3.4-5.1); Sodium 137 mmol/L (137-145); Triglycerides 115 mg/dL (35-150)
[2023-03-14 10:30] LABS: Add Manual Diff / Slide Review NO; Basophils Absolute Auto 0 /uL (0-100); Basophils Percent Auto 0.7 % (0-2); Eosinophils Absolute Auto 100 /uL (0-450); Eosinophils Percent Auto 1.7 % (2-4); Hematocrit 43.3 % (41-53); Hemoglobin 14.6 g/dL (13.5-17.5); Lymphocytes Absolute Auto 1200 /uL (1100-4500); Lymphocytes Percent Auto 20.6 % (25-40); Mean Corpuscular HGB Conc 33.8 % (30-36); Mean Corpuscular Hemoglobin 30.6 PG (26-34); Mean Corpuscular Volume 90.6 fL (80-100); Monocytes Absolute Auto 600 /uL (0-900); Monocytes Percent Auto 9.3 % (3-14); Neutrophils Absolute Auto 4000 /uL (1500-7000); Neutrophils Percent Auto 67.7 % (50-75); Platelet Count 187 X10^3/uL (150-400); Red Blood Cell Count 4.77 X10^6/uL (4.5-5.9); Red Cell Distribution Width 13.6 % (11.6-14.8); White Blood Cell Count 5.9 X10^3/uL (4.5-11.0)
== END ==
PROVIDERS: PCP Internal Medicine; Referring Provider Internal Medicine Cardiovascular Disease; Visit Provider Internal Medicine Cardiovascular Disease
DX: R01.1 Cardiac murmur, unspecified (principal); E78.5 Hyperlipidemia, unspecified; I48.0 Paroxysmal atrial fibrillation
CPT/HCPCS: 36415; 80048; 80061; 85025

== ENCOUNTER → 2023-11-28 16:51 | Outpatient (CLI) | payer OTHER, SELFPAY ==
--- NOTE | 2023-11-28 16:55 | DI.RAD.S_ITS ---
PROCEDURE: XR ACUTE ABDOMEN SERIES INDICATIONS: ABD PAIN, BLOATING TECHNIQUE: One view chest and two views of the abdomen were acquired. COMPARISON: [facility], CT, CT ABDOMEN PELVIS WITH CONTRAST, 12/06/2020, 11:27. FINDINGS: Surgical changes and devices: None. Chest: Lungs are clear. Heart size is normal. No pleural effusions. No pneumoperitoneum. Abdomen: Bowel gas pattern is normal. No suspicious calcifications. Visualized solid organ contours appear normal. Bones: No suspicious bony lesions. IMPRESSION: No acute cardiopulmonary abnormality. Nonobstructive bowel gas pattern. Dictated by: Trevon Lawson M.D. on 11/29/2023 at 9:25 Approved by: Trevon Lawson M.D. on 11/29/2023 at 9:27
== END ==
PROVIDERS: PCP Internal Medicine; Referring Provider Internal Medicine; Visit Provider Internal Medicine
DX: R07.9 Chest pain, unspecified (principal); R10.12 Left upper quadrant pain; R14.0 Abdominal distension (gaseous)
CPT/HCPCS: 74022

== ENCOUNTER → 2024-04-01 15:34 | Outpatient (CLI) | payer OTHER, SELFPAY | PROVIDERS: PCP Internal Medicine; Referring Provider Specialist; Visit Provider Specialist | DX: R97.20 Elevated prostate specific antigen [PSA] (principal) | CPT/HCPCS: 36415; 84153 ==

== ENCOUNTER → 2024-11-18 15:38 | Outpatient (CLI) | payer OTHER, SELFPAY ==
--- NOTE | 2024-11-18 15:40 | DI.RAD.S_ITS ---
PROCEDURE: XR HIP W PEL IF DONE RT 2V INDICATIONS: HIP PAIN TECHNIQUE: AP pelvis and frogleg right hip views were acquired . COMPARISON: [facility], CR, XR HIP W PEL IF DONE RT 2V, 11/07/2022, 16:03. FINDINGS: Bones: There are no osseous abnormalities. SI and hip joints: Normal in width and alignment without arthritic change Soft tissues: No soft tissue swelling, calcification or mass. IMPRESSION: Normal pelvis Dictated by: Pedro Smart M.D. on 11/19/2024 at 11:09 Approved by: Pedro Smart M.D. on 11/19/2024 at 11:10
--- NOTE | 2024-11-18 15:41 | DI.RAD.S_ITS ---
PROCEDURE: XR LUMBAR SPINE 2-3V INDICATIONS: HIP PAIN TECHNIQUE: 3 views of the lumbar spine were acquired. COMPARISON: None. FINDINGS: Bones: 5 [id number] vertebrae are present. There is normal bony alignment. Degenerative endplate changes are noted throughout lumbar spine and lower thoracic spine. No vertebral body compression fractures. No suspicious bony lesions. Soft tissues: Overlying bowel gas pattern is normal. No suspicious soft tissue calcifications. IMPRESSION: [id number] degenerative disc disease throughout lower thoracic and lumbar spine. No acute vertebral body compression fracture or spondylolisthesis. Dictated by: Teo Rodriguez M.D. on 11/18/2024 at 16:04 Approved by: Teo Rodriguez M.D. on 11/18/2024 at 16:04
== END ==
PROVIDERS: PCP Family Medicine; Referring Provider Family Medicine; Visit Provider Family Medicine
DX: M51.34 Other intervertebral disc degeneration, thoracic region (principal); M51.360 Other intervertebral disc degeneration, lumbar region with discogenic back pain only; M25.551 Pain in right hip
CPT/HCPCS: 72100; 73502

== ENCOUNTER 2025-06-15 09:02 | Observation (INO) | payer OTHER, SELFPAY ==
[2025-06-15] VITALS (12 sets, daily range): BP systolic 110–144; BP diastolic 57–68; PULSE 54–64; RESP 13–23; TEMP 36.1–36.6; O2SAT 95–100; BMI 28.7
--- NOTE | 2025-06-15 09:07 | EKG_ITS ---
[address] [address] Test Date: 2025-06-15 Pat Name: Shane Issa Department: Room: Gender: Male Eap Clinician: TRU : 1945 Requested By: Order Number: [id number] Reading MD: Martin Stevens Measurements Intervals [place] Rate: 58 P: 44 WV: 192 QRS: 6 QRSD: 88 T: -9 QT: 440 QTc: 431 Interpretive Statements Sinus bradycardia T wave abnormality, consider inferior ischemia Electronically Signed On 06-17-2025 8:31:03 PDT by Martin Stevens
--- NOTE | 2025-06-15 09:13 | DI.RAD.S_ITS ---
PROCEDURE: XR CHEST 1V INDICATIONS: Chest Pain TECHNIQUE: One view of the chest was acquired. COMPARISON: [facility], CR, XR CHEST 1V, 02/27/2020, 15:05. FINDINGS: Surgical changes and devices: None. Lungs and pleura: Lungs are clear. No pleural effusions or pneumothorax. Mediastinum: Mediastinal contours appear normal. Heart size is normal. Bones and chest wall: No suspicious bony lesions. Overlying soft tissues appear unremarkable. IMPRESSION: No acute cardiopulmonary pathology. Dictated by: Teo Rodriguez M.D. on 06/15/2025 at 9:26 Approved by: Teo Rodriguez M.D. on 06/15/2025 at 9:26
[2025-06-15] MEDS: ONDANSETRON 4 MG/2 ML INJ IV (09:17)
[2025-06-15 09:20] LABS: Add Manual Diff / Slide Review NO; Hematocrit 45.7 % (41-53); Hemoglobin 15.7 g/dL (13.5-17.5); Lymphocytes Absolute Auto 2100 /uL (1100-4500); Mean Corpuscular HGB Conc 34.3 % (30-36); Mean Corpuscular Hemoglobin 30.6 PG (26-34); Mean Corpuscular Volume 89.3 fL (80-100); Platelet Count 222 X10^3/uL (150-400)
[2025-06-15 09:27] LABS: INR 1.0 (0.9-1.3); Prothrombin Time 11.8 SECONDS (9.4-12.5)
[2025-06-15 09:30] LABS: PTT Partial Thromboplastin Tim 39 SECONDS (25.1-36.5)
[2025-06-15 09:33] LABS: Alanine Aminotransferase 23 IU/L (<50); Albumin 4.7 g/dL (3.5-5.0); Albumin Globulin Ratio 1.6 (1.0-2.8); Alkaline Phosphatase 69 U/L (38-126); Blood Urea Nitrogen 13 mg/dL (9-20); Calcium 9.1 mg/dL (8.4-10.2); Carbon Dioxide 26 mmol/L (22-32); Chloride 101 mmol/L (98-107); Creatine Kinase 67 U/L (55-170); Estimated Glomerular Filt Rate > 60 mL/min (>60); Globulin 2.9 g/dL (1.7-4.1); Glucose 146 mg/dL (70-99); HEMOLYSIS < 15 (0-50); Lipase 63 U/L (23-300); Magnesium 2.0 mg/dL (1.6-2.3); Potassium 3.8 mmol/L (3.4-5.1); Sodium 136 mmol/L (137-145); Total Protein 7.6 g/dL (6.3-8.2)
--- NOTE | 2025-06-15 09:39 | ED_ITS ---
HPI - Syncope General Chief Complaint: Syncope Stated Complaint: Syncopal episode Time Seen by Provider: 06/15/25 09:16 Source: patient and EMS Mode of arrival: EMS Limitations: no limitations History of Present Illness HPI narrative: 80-year-old male with history of atrial fibrillation prescribed flecainide metoprolol and Eliquis, falls with Dr. Bellamy of [facility] here via EMS for evaluation with his son after had a syncopal episode at his group home community. Patient was sitting at breakfast and his chair for a couple of minutes, had just ordered, began to feel that his whole body was heavy. He woke up to his and a staff member holding him up in bed. He had no preceding chest pain or palpitations. This occurred in 2019, he recalls being evaluated at [facility] was admitted for a few days, had a stress test and was discharged home. Patient denies any recent illness such as vomiting or diarrhea but after he woke up did throw up once. No respiratory infectious symptoms. He is prescribed Eliquis and has been taking his medication consistently. Has not noted any lower extremity swelling or pain and has no history of DVT or PE Related Data Home Medications ?Medication ?Instructions ?Recorded ?Confirmed atorvastatin 10 mg tablet 10 mg PO DAILY 06/01/2103/04 flecainide 100 mg tablet 50 mg PO BID 06/01/21 coenzyme Q10 100 mg capsule 100 mg PO DAILY 09/18/22 1 dicyclomine 10 mg capsule 20 mg PO QD-TID 09/18/2203/04 esomeprazole magnesium 20 mg 20 mg PO DAILY 09/18/22 1 capsule,delayed release (Nexium) tamsulosin 0.4 mg capsule 0.4 mg PO BID 09/18/2206/15 dabigatran etexilate 150 mg 150 mg PO BID 10/12/2203/04 capsule (Pradaxa) doxepin 10 mg capsule 10 mg PO ONCE PM 06/15/25 Previous Rx's ?Medication ?Instructions ?Recorded metoprolol succinate 25 mg 12.5 mg (1/2 x 25 mg) PO DA CECILE #30 06/16/25 tablet,extended release 24 hr tabs Allergies Allergy/AdvReac Type Severity Reaction Status Date / Time No Known Drug Allergies Allergy Verified 06/15/25 09:07 Review of Systems Review of Systems Narrative: Pertinent ROS obtained and negative except as stated in HPI Patient History Medical History Nocturia BPH w urinary obs/LUTS Inflammatory bowel syndrome Malignant basal cell neoplasm of skin Prostatitis GERD (gastroesophageal reflux disease) Whitt's esophagus Arthralgia Enlarged prostate Tachycardia HTN (hypertension) Hyperlipidemia Blood glucose elevated Surgical History History of vasectomy History of hernia repair History of appendectomy Family History Father Cancer Stroke Mother Stroke Diabetes mellitus Social History marital status: number of children: 2 household members: spouse Previous occupational history: retired Smoking Status: Former smoker alcohol intake: current caffeine: Yes frequency: 3-4 times per week alcohol intake frequency: a few times a month Exam Initial Vital Signs Initial Vital Signs: Vital Signs Pulse Rate 58 L 06/15/25 09:06 Respiratory Rate 15 06/15/25 09:06 Pulse Oximetry 96 06/15/25 09:06 Constitutional: Well appearing, no acute distress Head: NCAT Cardiovascular: RRR, no murmur or rub Pulmonary: CTA bilaterally, no respiratory distress Abdominal: soft, non-tender Extremities: No LE edema Skin: warm and dry, no diaphoresis Neurological: Alert and oriented x3 Course Orders Ordered: Discontinued Medications Acetaminophen (Acetaminophen 325 Mg Tablet) 650 mg PO Q6H PRN PRN Reason: Fever/Mild Pain (1-3) Al Hydrox/Mg Hydrox/Simethicone (Mag Hydrox/Alum/Simeth 30 Ml Udc) 30 ml PO NOW ONE Stop: 06/15/25 10:23 Last Admin: 06/15/25 10:31 Dose: 30 ml Documented By: ALEXUS Al Hydrox/Mg Hydrox/Simethicone (Mag Hydrox/Alum/Simeth 30 Ml Udc) 30 ml PO Q6HR PRN PRN Reason: Dyspepsia Atorvastatin Calcium (Atorvastatin 20 Mg Tablet) 10 mg PO BEDTIME MICHELLE Last Admin: 06/15/25 22:06 Dose: 10 mg Documented By: TD Calcium Carbonate (Calcium Carbonate 500 Mg Tab) 1,000 mg PO Q4HR PRN PRN Reason: Dyspepsia Dabigatran (Dabigatran 75 Mg Capsule) 150 mg PO BID [facility] Last Admin: 06/16/25 08:42 Dose: 150 mg Documented By: Admin: 06/15/25 22:05 Dose: 150 mg Documented By: TD Dicyclomine HCl (Dicyclomine 10 Mg Capsule) 10 mg PO BID [facility] Last Admin: 06/16/25 08:42 Dose: 10 mg Documented By: Admin: 06/15/25 22:06 Dose: 10 mg Documented By: TD Diphenhydramine HCl (Diphenhydramine 50 Mg/Ml Vial) 25 mg IV NOW ONE Stop: 06/15/25 10:10 Last Admin: 06/15/25 10:14 Dose: 25 mg Documented By: SGF Docusate Sodium (Docusate 100 Mg Capsule) 100 mg PO BID [facility] Last Admin: 06/16/25 08:42 Dose: 100 mg Documented By: Admin: 06/15/25 22:06 Dose: 100 mg Documented By: TD Famotidine (Famotidine 20 Mg/2 Ml Vial) 20 mg IV NOW [facility] Last Admin: 06/15/25 10:31 Dose: 20 mg Documented By: SGF Flecainide Acetate (Flecainide 100 Mg Tablet) 50 mg PO BID [facility] Last Admin: 06/16/25 08:42 Dose: 50 mg Documented By: Admin: 06/15/25 22:06 Dose: 50 mg Documented By: TD Metoprolol Succinate (Metoprolol Er 25 Mg Tablet) 25 mg PO BID [facility] Metoprolol Succinate (Metoprolol Er 25 Mg Tablet) 12.5 mg PO DAILY [facility] Last Admin: 06/16/25 08:43 Dose: 12.5 mg Documented By: BLAKE Naloxone HCl (Naloxone 0.4 Mg/Ml Vial) 0.2 mg IV Q2MIN PRN PRN Reason: Opiate Reversal Nf - Doxepin 10 Mg (Capsule) 10 mg PO BEDTIME [facility] Last Admin: 06/15/25 22:06 Dose: Not Given Documented By: TD Ondansetron HCl (Ondansetron 4 Mg/2 Ml Inj) 4 mg IV NOW ONE Stop: 06/15/25 09:16 Last Admin: 06/15/25 09:17 Dose: 4 mg Documented By: ALEXUS Pantoprazole Sodium (Pantoprazole Dr 20 Mg Tablet) 20 mg PO 0600 [facility] Last Admin: 06/16/25 06:07 Dose: 20 mg Documented By: TEAGAN Prochlorperazine (Prochlorperazine 10 Mg/2 Ml Vial) 10 mg IV NOW ONE Stop: 06/15/25 10:10 Last Admin: 06/15/25 10:14 Dose: 10 mg Documented By: MOOKIEF Sodium Biphosphate/Sodium Phosphate (Fleets Enema) 1 each OR PRN PRN PRN Reason: Constipation Sodium Chloride (Sodium Chloride 0.9% Flush) 10 ml IV PRN PRN PRN Reason: Flush Sodium Chloride (Sodium Chloride 0.9% Flush) 10 ml IV BID [facility] Last Admin: 06/16/25 08:45 Dose: Not Given Documented By: BLAKE Tamsulosin HCl (Tamsulosin 0.4 Mg Capsule) 0.4 mg PO DAILY [facility] Last Admin: 06/16/25 08:42 Dose: 0.4 mg Documented By: BLAKE Vital Signs Vital signs: Vital Signs - 8 hr 06/15/25 09:06 06/15/25 09:07 06/15/25 09:30 Temperature 97.9 F Pulse Rate 58 L 61 61 Respiratory Rate 15 16 22 Blood Pressure 124/64 Pulse Oximetry 96 97 97 Oxygen Delivery Method Room Air 06/15/25 09:31 06/15/25 09:31 06/15/25 10:00 Temperature Pulse Rate 58 L 58 L Respiratory Rate 23 22 Blood Pressure 134/65 Pulse Oximetry 98 100 Oxygen Delivery Method 06/15/25 10:00 06/15/25 10:30 06/15/25 10:30 Temperature Pulse Rate 55 L Respiratory Rate 21 Blood Pressure 144/68 H 135/65 Pulse Oximetry 98 Oxygen Delivery Method MDM - Syncope Lab Data 06/16/25 05:32 06/16/25 05:32 Labs: Lab Results 06/15/25 Range/Units 09:05 WBC 7.0 (4.5-11.0) X10^3/uL RBC 5.11 (4.5-5.9) X10^6/uL Hgb 15.7 (13.5-17.5) g/dL Hct 45.7 (41-53) % MCV 89.3 (80-100) fL MCH 30.6 (26-34) PG MCHC 34.3 (30-36) % RDW 13.4 (11.6-14.8) % Plt Count 222 (150-400) X10^3/uL Neut % (Auto) 57.1 (50-75) % Lymph % (Auto) 30.6 (25-40) % Howard % (Auto) 10.0 (3-14) % Eos % (Auto) 1.7 L (2-4) % Baso % (Auto) 0.6 (0-2) % Neut # (Auto) 4000 (7638-3984) /uL Lymph # (Auto) 2100 (4510-6531) /uL Howard # (Auto) 700 (0-900) /uL Eos # (Auto) 100 (0-450) /uL Baso # (Auto) 0 (0-100) /uL PT 11.8 (9.4-12.5) SECONDS INR 1.0 (0.9-1.3) APTT 39 H (25.1-36.5) SECONDS Sodium 136 L (137-145) mmol/L Potassium 3.8 (3.4-5.1) mmol/L Chloride 101 (98-107) mmol/L Carbon Dioxide 26 (22-32) mmol/L BUN 13 (9-20) mg/dL Creatinine 0.89 (0.66-1.25) mg/dL Estimated GFR > 60 (>60) mL/min BUN/Creatinine Ratio 14.6 (6-22) Glucose 146 H (70-99) mg/dL Calcium 9.1 (8.4-10.2) mg/dL Magnesium 2.0 (1.6-2.3) mg/dL Total Bilirubin 0.9 (0.2-1.3) mg/dL AST 26 (17-59) IU/L ALT 23 (<50) IU/L Alkaline Phosphatase 69 (38-126) U/L Total Creatine Kinase 67 (55-170) U/L Troponin I < 0.012 (0.01-0.034) ng/mL NT-Pro-B Natriuret Pep 63 (<450) pg/mL Total Protein 7.6 (6.3-8.2) g/dL Albumin 4.7 (3.5-5.0) g/dL Globulin 2.9 (1.7-4.1) g/dL Albumin/Globulin Ratio 1.6 (1.0-2.8) Lipase 63 (23-300) U/L Point of Care Testing Glucose POC 139 MDM Narrative Medical decision making narrative: 80-year-old male history of atrial fibrillation prescribed metoprolol and flecainide here for evaluation after syncope as described above. On arrival noted to be tachycardic, normotensive, nauseous and appears uncomfortable. Denies chest pain or palpitations. Had a similar episode in 2019 EKG 0907: Sinus bradycardia rate of 58, normal OR 192, QRS 80, QTC 431, normal axis. No ST segment elevation or depression, T-wave inversion in lead 3. No prior for comparison Differential Diagnosis for syncope is broad and includes but not limited to: vasovagal syncope, orthostatic hypotension, cardiac causes (eg arrhythmia, structural heart disease, ischemia), neurological causes (eg seizure, TIA, migraine, vertebrobasilar insufficiency), metabolic causes (eg hypoglycemia, anemia, dehydration or electrolyte disturbance), psychogenic (eg panic attack, conversion disorder), medications and toxins (eg CO poisoning), shock (eg sepsis, hemorrhage), endocrine disorders (eg adrenal insufficiency, thyroid disorder), iatrogenic syncope. No family history of sudden cardiac or personal history of cardiac issue. No known history of seizure disorder or s/sx of seizure activity, headache or atherosclerosis/stroke. No report of chest pain or clinical signs of DVT, hypoxia that would be concerning for ACS/PE. No pertinent medications that would cause syncope or s/sx of carbon monoxide poisoning in the home. No s/sx of endocrine disorder such as chronic fatigue, weight loss/nausea, hypotension, skin changes. No focal neurologic deficits or severe headache today that would prompt advanced imagine of the head/neck. Will obtain appropriate workup, monitor via telemetry Workup today is reassuring however concern remains for cardiac etiology of syncope. Patient observed in ED with no further episodes or telemetry events. [place] syncope score is [address] Flores if [facility] at 10:15 a.m. who recommends admit for 24 hours observation, decrease metoprolol to 25 mg daily, flecainide dose can be left as is. Can touch base with scheduled cardiology on an as-needed basis otherwise patient can safely follow up with Dr. Roger Discussed case with Dr. Hernandez who will admit the patient later today. Requests at echocardiogram. Patient confirms is full code. 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 full list in Evidence) INPUTS: Predisposition to vasovagal symptoms ?> 0 = No Heart disease history ?> 1 = Yes sBP 180 mmHg ?> 0 = No Elevated troponin ?> 0 = No Abnormal QRS axis ?> 0 = No QRS duration >130 ms ?> 0 = No Corrected QT interval >480 ms ?> 0 = No ED diagnosis ?> 2 = Cardiac syncope Discharge Plan Departure Patient Disposition: Admitted as Observation Clinical Impression: Syncope, Bradycardia, sinus Admit Date/Time: 06/15/25 10:58 Admit Provider: Nallely Hernandez
[2025-06-15 09:44] LABS: NT-proBNP (BNP-Adult 18+) 63 pg/mL (<450); Troponin I < 0.012 ng/mL (0.01-0.034)
[2025-06-15] MEDS: diphenhydrAMINE 50 MG/ML VIAL 25 MG IV (10:14)
[2025-06-15] MEDS: PROCHLORPERAZINE 10 MG/2 ML VIAL IV (10:14)
[2025-06-15] MEDS: FAMOTIDINE 20 MG/2 ML VIAL IV (10:31)
[2025-06-15] MEDS: MAG HYDROX/ALUM/SIMETH 30 ML UDC PO (10:31)
--- NOTE | 2025-06-15 10:50 | DI.ECHO.S_ITS ---
[facility] : : [address] : : [place] : : [id number] : : Phone: [phone] Echocardiogram Report + + :Name: MATILDA LARA Study Date: 06/15/2025 Height: 70 in : :[facility] ReadingLocation: Weight: 200 lb : : Gender: Male BSA: 2.1 m2 : :: 1945 Age: 80 yrs BP: 121/63 mmHg: :Reason For Study: SYNCOPE : :Ordering Physician: SHANNAN, : :MARIXA Performed By: Kristal Lino : :Referring: MARIXA CAMPBELL : + + Interpretation Summary 1) Normal left ventricular thickness, size, wall motion, and systolic function (EF 60-65%). 2) Normal right ventricular size and function. 3) No significant valvular abnormalities. 4) Compared to the Echo done 02/08/2023, no significant change. Procedure: A two-dimensional transthoracic echocardiogram with color flow and Doppler was performed. The study quality was technically adequate. Comparison is made with the echocardiogram of 02/08/2023. The patient was in sinus bradycardia with heart rates between 55-65 bpm during the exam. Left Ventricle: The left ventricle is normal in size and wall thickness. The ejection fraction is estimated to be 60-65%. Left ventricular systolic function appears normal without focal wall motion abnormalities. Normal diastolic function. Right Ventricle: The right ventricle is normal in size and function. Atria: The left atrial size is normal. Right atrial size is normal. There is no Doppler evidence for an interatrial shunt. Mitral Valve: The mitral valve leaflets appear mildly thickened. There is mild mitral regurgitation. Aortic Valve: The aortic valve is trileaflet. The aortic valve opens well. There is no aortic valve stenosis. There is trace aortic regurgitation. Tricuspid Valve: The tricuspid valve leaflets are thin and pliable. There is mild tricuspid regurgitation. The right ventricular systolic pressure is estimated to be at least 31 mmHg based on an estimated right atrial pressure of 3 mm Hg. Pulmonic Valve: The pulmonic valve leaflets are thin and pliable; valve motion is normal. There is trace pulmonic regurgitation. Great Vessels: The aortic root is normal size. The dimensions of the ascending aorta are normal. The IVC is of normal diameter and collapses greater than 50% with a sniff. This suggests a low right atrial pressure of 3 mm Hg. Pericardium/ Pleura There is no pericardial effusion. There is no pleural effusion. MMode/2D Measurements & Calculations LVIDd: 4.7 cm LVOT diam: 2.1 cm LVIDs: 3.1 cm Ao root diam: 3.2 cm FS: 34.5 % asc Aorta Diam: 3.3 cm EPSS: 0.39 cm Ao Arch Diam (Prox Trans): 3.0 cm IVSd: 1.1 cm LVPWd: 0.86 cm LV leung. diameter/BSA (cm/m^2): 2.3 LV sys. diameter/BSA (cm/m^2): 1.5 LA A2 area: 20.8 cm2 RA long axis: 5.3 cm LA A4 area: 16.6 cm2 RA area: 17.6 cm2 LA length (vol): 5.7 cm RA vol: 49.2 ml LA vol: 51.4 ml RA : 23.6 ml/m2 LA vol index: 24.6 ml/m2 IVC diam: 2.0 cm RVD1 (basal): 3.5 cm RVD2 (mid): 2.9 cm TAPSE: 2.2 cm Doppler Measurements & Calculations Ao V2 max: 148.9 cm/sec LVOT Max Tevin: 116.8 cm/sec Ao V2 mean: 101.9 cm/sec LV V1 max P.5 mmHg Ao max P.9 mmHg LV V1 VTI: 25.8 cm Ao mean P.7 mmHg MARIBELL(I,D): 2.7 cm2 Ao V2 VTI: 34.3 cm MARIBELL(V,D): 2.8 cm2 sev ratio: 0.75 MARIBELL indexed to BSA (cm^2/m^2): 1.3 MV E max tevin: 80.6 cm/sec TR max tevin: 262.5 cm/sec MV A max tevin: 83.1 cm/sec TR max P.6 mmHg MV E/A: 0.97 PA V2 max: 100.5 cm/sec Med Peak E' Tevin: 9.1 cm/sec PA V2 mean: 65.1 cm/sec E/E' med: 8.9 PA mean P.9 mmHg Lat Peak E' Tevin: 8.4 cm/sec PA pr(Accel): 23.1 mmHg E/E' lat: 9.6 E/e' average: 9.2 MV dec time: 0.15 sec SV(LVOT): 93.8 ml Reading Physician:04:42 PM
--- NOTE | 2025-06-15 11:34 | PC.NURSE ---
pt starting to feel better after medications
[2025-06-15 11:37] LABS: Troponin I < 0.012 ng/mL (0.01-0.034)
--- NOTE | 2025-06-15 17:18 | DI.CT.S_ITS ---
PROCEDURE: CT HEAD/BRAIN WO CON INDICATIONS: syncope TECHNIQUE: Noncontrast 4.5 mm thick angled axial sections acquired from the foramen magnum to the vertex, with coronal and sagittal reformats. For radiation dose reduction, the following was used: automated exposure control, adjustment of mA and/or kV according to patient size. COMPARISON: [facility], CT, CT HEAD/BRAIN WO CON, 02/27/2020, 14:22. FINDINGS: Image quality: Diagnostic. CSF spaces: Basal cisterns are patent. No extra-axial fluid collections. The ventricles are symmetric in size and shape. Chronic right frontal calcified meningioma. Brain: No intracranial bleeds or mass effect. There is cerebral volume loss, with resultant ventricular and sulcal prominence. There are periventricular and deep white matter chronic small vessel ischemic changes. There is intracranial internal carotid artery atherosclerosis. Skull and face: Calvarium and visualized facial bones appear intact, without suspicious lesions. Sinuses: Visualized sinuses and mastoids are clear. IMPRESSION: No acute intracranial pathology. Approved by: Bernice Roth M.D.,Ph.D. on 06/15/2025 at 19:48
--- NOTE | 2025-06-15 21:52 | PM.HP.1 ---
History of Present Illness History of Present Illness Date Patient Seen: 06/15/25 Time Patient Seen: 18:00 Chief complaint: Syncopal episode Narrative: 80-year-old male with history of atrial fibrillation prescribed flecainide metoprolol and Eliquis, he sees Dr. Bellamy of [facility] cardiology. Previous ablation. Presents to ER via EMS for evaluation with his son after had a syncopal episode at his senior living community. Patient was sitting at breakfast and his chair for a couple of minutes, had just ordered, began to feel that his whole body was heavy. sitting next to him and witnessed event. No fall. no head injury. [place] weird before it happened. entire body heavy and slightly lh. He woke up to his and a staff member holding him up in bed. He had no preceding chest pain or palpitations. This occurred in 2019, he recalls being evaluated at [facility] emergency department was admitted for a few days, had a stress test and was discharged home. Patient denies any recent illness such as vomiting or diarrhea but after he woke up did throw up once. No respiratory infectious symptoms. He is prescribed Eliquis and has been taking his medication consistently. Has not noted any lower extremity swelling or pain and has no history of DVT or PE ER physician discussed with bail bond agent for his floor specialist and Dr. Flores recommended admission and monitoring over night with decrease in metoprolol due to bradycardia met with pt and his and daughter Patient feeling much better now. PMH: afib hyperlipidemia Gerd bph PSH appendectomy BIH repair in teens ablation HRB, occasional alcohol; smoked in college, active Family history mom diabetes dad brain aneurysm; obesity SH: and lives with in [facility] Medical History Nocturia BPH w urinary obs/LUTS Inflammatory bowel syndrome Malignant basal cell neoplasm of skin Prostatitis GERD (gastroesophageal reflux disease) Whitt's esophagus Arthralgia Enlarged prostate Tachycardia HTN (hypertension) Hyperlipidemia Blood glucose elevated Surgical History History of vasectomy History of hernia repair History of appendectomy Family History Father Cancer Stroke Mother Stroke Diabetes mellitus Social History marital status: number of children: 2 household members: spouse Previous occupational history: retired Smoking Status: Former smoker alcohol intake: current caffeine: Yes frequency: 3-4 times per week Meds Home Medications and Allergies Home Medications ?Medication ?Instructions ?Recorded ?Confirmed ?Type atorvastatin 10 mg tablet 10 mg PO DAILY 06/01/21 06/15/25 History flecainide 100 mg tablet 50 mg PO BID 06/01/21 06/15/25 History metoprolol succinate 50 mg 25 mg PO BID 06/01/21 06/15/25 History tablet,extended release 24 hr coenzyme Q10 100 mg capsule 100 mg PO DAILY 09/18/22 06/15/25 History dicyclomine 10 mg capsule 20 mg PO QD-TID 09/18/22 06/15/25 History esomeprazole magnesium 20 mg 20 mg PO DAILY 09/18/22 06/15/25 History capsule,delayed release (Nexium) tamsulosin 0.4 mg capsule 0.4 mg PO BID 09/18/22 06/15/25 History dabigatran etexilate 150 mg 150 mg PO BID 10/12/22 06/15/25 History capsule (Pradaxa) doxepin 10 mg capsule 10 mg PO ONCE PM 06/15/25 06/15/25 History Allergies Allergy/AdvReac Type Severity Reaction Status Date / Time No Known Drug Allergies Allergy Verified 06/15/25 09:07 Exam Vital Signs (past 8 hours): - 06/15/25 20:00 Temperature 97.5 F L Pulse Rate 64 Respiratory Rate 16 Blood Pressure 114/57 L Pulse Oximetry 96 Oxygen Delivery Method Room Air Oxygen Flow Rate 0 Narrative Exam Narrative: alert and oriented x3 Patient appears younger than his stated age of 80 in his resting comfortably in the hospital bed HEENT is unremarkable Neck: Supple Chest: Clear to auscultation without wheezes rhonchi or crackles Cor: Regular rate and rhythm without a murmur, distant S1-S2 Abdomen: Positive bowel sounds, soft, nontender, nondistended, no masses Extremities no edema pulses intact Neurologic exam normal Skin exam no rashes Objective Labs 06/16/25 05:32 06/16/25 05:32 Labs: Laboratory Results - last 24 hr 06/15/25 06/15/25 09:05 11:05 WBC 7.0 RBC 5.11 Hgb 15.7 Hct 45.7 MCV 89.3 MCH 30.6 MCHC 34.3 RDW 13.4 Plt Count 222 Neut % (Auto) 57.1 Lymph % (Auto) 30.6 [place] % (Auto) 10.0 Eos % (Auto) 1.7 L Baso % (Auto) 0.6 Neut # (Auto) 4000 Lymph # (Auto) 2100 [place] # (Auto) 700 Eos # (Auto) 100 Baso # (Auto) 0 PT 11.8 INR 1.0 APTT 39 H Sodium 136 L Potassium 3.8 Chloride 101 Carbon Dioxide 26 BUN 13 Creatinine 0.89 Estimated GFR > 60 BUN/Creatinine Ratio 14.6 Glucose 146 H Calcium 9.1 Magnesium 2.0 Total Bilirubin 0.9 AST 26 ALT 23 Alkaline Phosphatase 69 Total Creatine Kinase 67 Troponin I < 0.012 < 0.012 NT-Pro-B Natriuret Pep 63 Total Protein 7.6 Albumin 4.7 Globulin 2.9 Albumin/Globulin Ratio 1.6 Lipase 63 Assessment & Plan Assessment & Plan narrative: 80-year-old male followed by Dr. Gimenez as an outpatient with a history of hyperlipidemia and atrial fibrillation and GERD. Patient with syncopal episode witnessed at his senior living home when he was eating breakfast with his . Suspicious for cardiac etiology patient presented to the ER was found to have bradycardia but no other abnormalities in case was discussed with Dr. Flores on-call for patient's floor specialist Dr. Bellamy and he recommended overnight hospitalization and monitoring. Patient is feeling much better this afternoon. No nausea. No dizziness or other concerns. Assessment 1. Syncopal episode Plan: Patient will be admitted on telemetry and will do an echo Labs were done to rule out acute [place]. Will decrease metoprolol from 25 mg daily to 12.5 mg daily Pending findings will likely be discharged to home to follow up with floor specialist. Assessment 2. AFib with bradycardia. Plan: Decrease metoprolol Continue outpatient anticoagulation Continue with same flecainide Assessment 3. GERD Plan: Continue PPI Patient has been undergoing workup for GI complaints and encouraged that they continue this as an outpatient I do not think this was a causative agent in the syncopal episode Assessment 4. Hyperlipidemia Plan: Continue outpatient statin Assessment 5. BPH Plan: Continue with same tamsulosin though we might need to consider decreasing this pending patient's blood pressure is 77 minutes spent with patient in discussing with physicians, nursing, meeting with the patient in his and daughter and reviewing his chart both clinic and hospital and formulating a plan and documentation Code status is full code Disposition likely home back to senior living facility in the corner Time-Based Coding :: [TOTAL MINUTES] spent with patient and on the chart (including review of chart, obtaining history, exam, reviewing outside data, placing orders, documenting exam and treatment plan, and counseling patient) on [DATE]. Quality VTE Deep Vein Thrombosis/Pulmonary Embolism Present on Admission: No
[2025-06-15] MEDS: DABIGATRAN 75 MG CAPSULE 150 MG PO (22:05)
[2025-06-15] MEDS: DICYCLOMINE 10 MG CAPSULE PO (22:06)
[2025-06-15] MEDS: FLECAINIDE 100 MG TABLET 50 MG PO (22:06)
[2025-06-15] MEDS: DOCUSATE 100 MG CAPSULE PO (22:06)
[2025-06-15] MEDS: ATORVASTATIN 20 MG TABLET 10 MG PO (22:06)
[2025-06-16 00:49] VITALS: BP 119/60; PULSE 70; RESP 13; TEMP 36.4; O2SAT 96
[2025-06-16 05:00] VITALS: BP 105/57; PULSE 62; RESP 13; TEMP 36.4; O2SAT 95
[2025-06-16 05:41] LABS: Add Manual Diff / Slide Review NO; Hematocrit 43.9 % (41-53); Hemoglobin 14.9 g/dL (13.5-17.5); Lymphocytes Absolute Auto 1400 /uL (1100-4500); Mean Corpuscular HGB Conc 33.9 % (30-36); Mean Corpuscular Hemoglobin 30.3 PG (26-34); Mean Corpuscular Volume 89.4 fL (80-100); Platelet Count 188 X10^3/uL (150-400)
[2025-06-16 05:58] LABS: Alanine Aminotransferase 20 IU/L (<50); Albumin 4.0 g/dL (3.5-5.0); Albumin Globulin Ratio 1.5 (1.0-2.8); Alkaline Phosphatase 59 U/L (38-126); Blood Urea Nitrogen 13 mg/dL (9-20); Calcium 8.9 mg/dL (8.4-10.2); Carbon Dioxide 26 mmol/L (22-32); Chloride 105 mmol/L (98-107); Estimated Glomerular Filt Rate > 60 mL/min (>60); Globulin 2.7 g/dL (1.7-4.1); Glucose 97 mg/dL (70-99); HEMOLYSIS 18 (0-50); Potassium 4.2 mmol/L (3.4-5.1); Sodium 136 mmol/L (137-145); Total Protein 6.7 g/dL (6.3-8.2)
[2025-06-16] MEDS: PANTOPRAZOLE DR 20 MG TABLET PO (06:07)
[2025-06-16 07:00] VITALS: BP 111/59; PULSE 65; RESP 16; TEMP 36.4; O2SAT 100
[2025-06-16 08:00] VITALS: BP 118/92; PULSE 101; RESP 16; TEMP 36.1; O2SAT 97
--- NOTE | 2025-06-16 08:40 | PM.DS.1 ---
History of Present Illness History of Present Illness Chief complaint: Syncopal episode Narrative: 80-year-old male with history of atrial fibrillation prescribed flecainide metoprolol and Eliquis, he sees Dr. Bellamy of [facility] cardiology. Previous ablation. Presents to ER via EMS for evaluation with his son after had a syncopal episode at his group home community. Patient was sitting at breakfast and his chair for a couple of minutes, had just ordered, began to feel that his whole body was heavy. sitting next to him and witnessed event. No fall. no head injury. [place] weird before it happened. entire body heavy and slightly lh. He woke up to his and a staff member holding him up in bed. He had no preceding chest pain or palpitations. This occurred in 2019, he recalls being evaluated at [facility] emergency department was admitted for a few days, had a stress test and was discharged home. Patient denies any recent illness such as vomiting or diarrhea but after he woke up did throw up once. No respiratory infectious symptoms. He is prescribed Eliquis and has been taking his medication consistently. Has not noted any lower extremity swelling or pain and has no history of DVT or PE ER physician discussed with corporate communications manager for his lactation consultant and Dr. Flores recommended admission and monitoring over night with decrease in metoprolol due to bradycardia met with pt and his and daughter Patient feeling much better now. PMH: afib hyperlipidemia Gerd bph PSH appendectomy BIH repair in teens ablation HRB, occasional alcohol; smoked in college, active Family history mom diabetes dad brain aneurysm; obesity SH: and lives with in [facility] Discharge Providers Provider Date of admission: 06/15/25 10:58 Discharge Date: 06/16/25 Primary care physician: Ethel Low MD Consults: 06/15/25 13:38 Consult to Discharge Planning Routine Comment: Discharge provider: Nallely Hernandez MD Summary Hospital Course Discharge Diagnosis: Syncopal episode Bradycardia Paroxysmal atrial fibrillation in sinus rhythm Chronic anticoagulation Hyperlipidemia BPH Hospital Course: Patient admitted for witnessed syncopal episode workup for acute coronary syndrome negative. Repeat echo done which was normal and unchanged from [address] scan of the head was negative. Patient was monitored on telemetry and had sinus rhythm with borderline prolonged QT. Patient was hospitalized for 24 hours. Patient was continued on outpatient medications except metoprolol was decreased from 20/5 daily to 12.5 mg daily. Patient will follow up with Dr. Bellamy. Dr. Johnson was contacted. Patient will follow up with his PCP, Dr. Low Routine instructions. Status at Discharge Cognitive/behavioral status at discharge: oriented Functional status at discharge: independent ambulation Overall status at discharge: patient is back to baseline Exam Vital Signs (past 8 hours): - 06/16/25 00:49 06/16/25 05:00 06/16/25 07:00 Temperature 97.5 F L 97.5 F L 97.5 F L Pulse Rate 70 62 65 Respiratory Rate 13 13 16 Blood Pressure 119/60 105/57 L 111/59 L Pulse Oximetry 96 95 100 Oxygen Flow Rate 0 0 06/16/25 08:00 Temperature 96.9 F L Pulse Rate 101 H Respiratory Rate 16 Blood Pressure 118/92 H Pulse Oximetry 97 Oxygen Flow Rate 0 Oxygen Delivery Method Room Air Oxygen Flow Rate 0 Narrative Exam Narrative: Afebrile vital signs are stable HEENT is unremarkable Chest: Clear to auscultation Cor regular rate and rhythm with distant S1-S2 Abdomen: Positive bowel sounds Extremities no edema Objective Labs 06/16/25 05:32 06/16/25 05:32 Labs: Laboratory Results - last 24 hr 06/15/25 06/15/25 06/16/25 09:05 11:05 05:32 WBC 7.0 7.3 RBC 5.11 4.91 Hgb 15.7 14.9 Hct 45.7 43.9 MCV 89.3 89.4 MCH 30.6 30.3 MCHC 34.3 33.9 RDW 13.4 13.5 Plt Count 222 188 Neut % (Auto) 57.1 70.3 Lymph % (Auto) 30.6 18.7 L [place] % (Auto) 10.0 8.7 Eos % (Auto) 1.7 L 1.6 L Baso % (Auto) 0.6 0.7 Neut # (Auto) 4000 5100 Lymph # (Auto) 2100 1400 [place] # (Auto) 700 600 Eos # (Auto) 100 100 Baso # (Auto) 0 100 PT 11.8 INR 1.0 APTT 39 H Sodium 136 L 136 L Potassium 3.8 4.2 Chloride 101 105 Carbon Dioxide 26 26 BUN 13 13 Creatinine 0.89 0.81 Estimated GFR > 60 > 60 BUN/Creatinine Ratio 14.6 16.0 Glucose 146 H 97 Calcium 9.1 8.9 Magnesium 2.0 Total Bilirubin 0.9 0.8 AST 26 23 ALT 23 20 Alkaline Phosphatase 69 59 Total Creatine Kinase 67 Troponin I < 0.012 < 0.012 NT-Pro-B Natriuret Pep 63 Total Protein 7.6 6.7 Albumin 4.7 4.0 Globulin 2.9 2.7 Albumin/Globulin Ratio 1.6 1.5 Lipase 63 PFSH Medical History Nocturia BPH w urinary obs/LUTS Inflammatory bowel syndrome Malignant basal cell neoplasm of skin Prostatitis GERD (gastroesophageal reflux disease) Whitt's esophagus Arthralgia Enlarged prostate Tachycardia HTN (hypertension) Hyperlipidemia Blood glucose elevated Surgical History History of vasectomy History of hernia repair History of appendectomy Family History Father Cancer Stroke Mother Stroke Diabetes mellitus Social History marital status: number of children: 2 household members: spouse Previous occupational history: retired Smoking Status: Former smoker alcohol intake: current caffeine: Yes frequency: 3-4 times per week Discharge Assessment & Plan Assessment and Plan Assessment: Syncopal episode Bradycardia Paroxysmal atrial fibrillation in sinus rhythm Chronic anticoagulation Hyperlipidemia BPH Plan of Treatment: Patient admitted for witnessed syncopal episode workup for acute coronary syndrome negative. Repeat echo done which was normal and unchanged from [address] scan of the head was negative. Patient was monitored on telemetry and had sinus rhythm with borderline prolonged QT. Patient was hospitalized for 24 hours. Patient was continued on outpatient medications except metoprolol was decreased from 20/5 daily to 12.5 mg daily. Patient will follow up with Dr. Bellamy. Dr. Johnson was contacted. Patient will follow up with his PCP, Dr. Low Routine instructions. Discharge Plan Discharge Plan Patient Disposition: Home Discharge orders & Medications Prescriptions: New metoprolol succinate 25 mg Tablet Extended Release 24 Hr 12.5 mg PO DAILY Qty: 30 0RF Continued dicyclomine 10 mg capsule 20 mg PO QD-TID esomeprazole magnesium [Nexium] 20 mg capsule,delayed release(DR/EC) 20 mg PO DAILY coenzyme Q10 100 mg capsule 100 mg PO DAILY doxepin 10 mg capsule 10 mg PO ONCE PM dabigatran etexilate [Pradaxa] 150 mg capsule 150 mg PO BID flecainide 100 mg tablet 50 mg PO BID atorvastatin 10 mg tablet 10 mg PO DAILY tamsulosin 0.4 mg capsule 0.4 mg PO BID Discontinued metoprolol succinate 50 mg tablet extended release 24 hr 25 mg PO BID Patient Comments: Splits in half, to take 2x per day Follow up/Referrals: Ethel Low MD [Primary Care Provider, Family Practice] Diet/Activity/Treatments Diet: Low-sodium Visit Report/Discharge Packet Stand Alone Forms: Patient Portal/API, Stroke Signs & Symptoms Discharge Data Primary Care Provider: Ethel Low Attending Provider: Nallely Hernandez Admit Date/Time: 06/15/25 10:58 Quality VTE Deep Vein Thrombosis/Pulmonary Embolism Present on Admission: No
[2025-06-16] MEDS: DOCUSATE 100 MG CAPSULE PO (08:42)
[2025-06-16] MEDS: DICYCLOMINE 10 MG CAPSULE PO (08:42)
[2025-06-16] MEDS: TAMSULOSIN 0.4 MG CAPSULE PO (08:42)
[2025-06-16] MEDS: FLECAINIDE 100 MG TABLET 50 MG PO (08:42)
[2025-06-16] MEDS: DABIGATRAN 75 MG CAPSULE 150 MG PO (08:42)
[2025-06-16 08:43] VITALS: BP 111/59
[2025-06-16] MEDS: METOPROLOL ER 25 MG TABLET 12.5 MG PO (08:43)
--- NOTE | 2025-06-16 09:59 | PC.NURSE ---
Pt is dressed and ready for discharge home with Spouse and Daughter. IV and tele have been removed. Went over d/c instructions with Pt and Spouse-discussed d/c meds, time of last dose, reviewed stroke education. Reminded Pt to get up slowly from bed or chair to prevent dizziness and drink plenty of fluids to prevent constipation or dehydration. Pt denied further questions and will be taken out via w/c by EQUITY RESEARCH ANALYST to POV with Spouse and all belongings.
--- NOTE | 2025-06-16 15:12 | CM.DANOTE ---
Initial DCP Assessment Visit Note Reviewed EMR and team rounds for pt's medical status and updates. PRICING STRATEGIST was unable to meet with pt f/c before he discharged this morning, due to triage needs on the unit. Pt lives modified independently with his spouse in their own apartment at [facility]. His son was able to transport him back home. No CM d/c or assistance needs were identified during his stay. Payor: [facility] Adv PCP: Dr. Low Pt is a 80 year-old M with a hx of Afib and falls, followed by Dr. Roger at [facility] Cardiology. He presented to the ED via EMS after experiencing a syncopal episode at his [facility]. He was found to be tachycardic, nauseous, and generally uncomfortable. Pt did not have any further syncopal events in the ED. Cardiology was consulted, and recommended to admit pt to [facility] for 24-hours of heart monitoring/telemetry, and ECHO (today). ECHO was negative for abnormalities, and he was medically cleared for home d/c. Discharge Planning/Care Management CM Discharge Assessment Start: 06/15/25 11:07 Freq: Status: Discharge Protocol: Document 06/16/25 15:05 DPL (Rec: 06/16/25 15:12 DPL [id number]) Discharge Planning Assessment Assigned Discharge MichelleMARCO ANTONIO Environmental Services Assistant Insurance [facility] Advance Directives? No History Provided By Patient,Medical Record Has Patient been No admitted in last 30 days? Prior Living Detention Facility Arrangements Household Members spouse Type of Relies on Others transporation used prior to admit Facility Name [facility] Admitted From: Willing to Return to Yes: [facility] Facility? Independent with ADL Yes 's Is patient alert and Yes oriented? Caregiver for No Another DME Already Rented / Bath Bench,Elevated Toilet Seat,FWW / Walker Owned Comment No identified home d/c needs at this time. Pt will return to [facility] in [place]. Barriers to No Discharge Discharge Plan Home Referrals Initiated None needed Review Status In Process Please Provide Date 06/16/25 Initial DC Assessment Was Performed
== END 2025-06-16 10:18 | disposition home or self-care (01) ==
LOC: ED 10:27 → AC 11:37
PROVIDERS: Admitting Provider Family Medicine; Emergency Provider Student in an Organized Health Care Education/Training Program; PCP Family Medicine; Referring Provider Student in an Organized Health Care Education/Training Program; Visit Provider Family Medicine
DX: R55 Syncope and collapse (principal); R00.1 Bradycardia, unspecified; I48.0 Paroxysmal atrial fibrillation; K21.9 Gastro-esophageal reflux disease without esophagitis; E78.5 Hyperlipidemia, unspecified; N40.0 Benign prostatic hyperplasia without lower urinary tract symptoms; Z79.01 Long term (current) use of anticoagulants; Z91.81 History of falling; Z87.891 Personal history of nicotine dependence
CPT/HCPCS: 36415; 70450; 71045; 80053; 82550; 83690; 83735; 83880; 84484; 85025; 85610; 85730; 93005; 93306; 96374; 96375; 99284; G0378; J0780; J1200; J2405